=== PATIENT | female | born 1935 | race Caucasian/White ===

== ENCOUNTER 2018-02-24 15:54 | Emergency (ER) | payer OTHER ==
[~2018-02-24] VITALS: Ht 157.5 cm; Wt 56.8 kg
[~2018-02-24 15:54] MED LIST: ALPR0.254 PO; CHOL200074 PO; LISI-167 PO; OXYC5CAP2 PO; PROP40TA PO; VERAPAMIL PO; VITA1TAB19 PO; propranolol; verapamil PO
[2018-02-24 16:53] LABS: BASOPHILS % (AUTO) 0 % (0-1); EOSINOPHILS # (AUTO) 0.05 x10^3/uL (0-0.4); EOSINOPHILS % (AUTO) 1 % (1-7); LYMPHOCYTES % (AUTO) 11 % (22-44); MD NO; MEAN CORPUSCULAR HEMOGLOBIN 31.5 pg (27.0-34.8); MEAN CORPUSCULAR HGB CONC 33.5 g/dL (32.4-35.8); MEAN CORPUSCULAR VOLUME 94.1 fL (80-100); MONOCYTES # (AUTO) 0.32 x10^3/uL (0.2-0.8); MONOCYTES % (AUTO) 4 % (2-9); NEUTROPHILS # (AUTO) 7.44 x10^3/uL (1.8-6.8); NEUTROPHILS % (AUTO) 84 % (42-75); PLATELET COUNT 208 x10^3/uL (130-400); RED BLOOD COUNT 4.64 x10^6/uL (3.82-5.3)
[2018-02-24 16:59] LABS: ANION GAP 8 mmol/L (5-15); CALCIUM 9.3 mg/dL (8.5-10.1); CHLORIDE 103 mmol/L (98-107); CREATININE 0.94 mg/dL (0.55-1.02)
[2018-02-24 17:03] LABS: TROPONIN I < 0.015 ng/mL (0.000-0.045)
[2018-02-24 18:00] VITALS: BP 144/72
== END 2018-02-24 18:04 | disposition home or self-care (01) ==
LOC: ED 17:58
DX: R07.89 Other chest pain (principal); I10 Essential (primary) hypertension
CPT/HCPCS: 36415; 71045; 80048; 82040; 84484; 85025; 93005; 99285